=== PATIENT | male | born 1960 | race Caucasian/White ===

== ENCOUNTER → 2016-08-11 | Outpatient (CLI) | payer OTHER | LOC: BMCIMAGING 15:50 | PROVIDERS: ATTEND Internal Medicine | DX: R60.9 Edema, unspecified (principal) ==

== ENCOUNTER → 2016-08-19 | Outpatient (CLI) | payer OTHER | LOC: BMCIMAGING 09:40 | PROVIDERS: ATTEND Internal Medicine | DX: I80.02 Phlebitis and thrombophlebitis of superficial vessels of left lower extremity (principal); R60.9 Edema, unspecified; K40.90 Unilateral inguinal hernia, without obstruction or gangrene, not specified as recurrent ==

== ENCOUNTER → 2017-03-16 | Outpatient (CLI) | payer OTHER | LOC: BMCIMAGING 13:53 | PROVIDERS: ATTEND Podiatrist Foot & Ankle Surgery | DX: M79.671 Pain in right foot (principal) ==

== ENCOUNTER 2018-08-28 10:35 | Emergency (ER) | payer OTHER ==
[2018-08-28 10:40] VITALS: BP 132/92
--- NOTE | 2018-08-28 10:42 | EDPHY ---
H & P Stated Complaint: Laceration to tip of left thumb Source: Patient Exam Limitations: No limitations - Personal History Current Tetanus Diphtheria and Acellular Pertussis (TDAP): Unsure - Medical/Surgical History Hx Asthma: No Hx Chronic Respiratory Disease: No Hx Diabetes: No Hx Cardiac Disease: Yes Hx Renal Disease: No Hx Cirrhosis: No Hx Alcoholism: No Hx HIV/AIDS: No Hx Splenectomy or Spleen Trauma: No Other PMH: - 2017. Cancer - liver. - Social History Smoking Status: Never smoked Time Seen by Provider: 08/28/18 10:41 HPI/ROS: Chief Complaint: Thumb laceration HPI: The patient presents the ED with a laceration to his left thumb that he sustained on sheet metal earlier today. The patient denies any numbness or weakness. He denies additional acute complaints. Patient's tetanus shot is not up today. REVIEW OF SYSTEMS: Neuro: no headache, numbness, weakness Musculoskeletal: as above Skin: As above (Dong Adan) - Physical Exam Exam: General Appearance: Alert, no distress Skin: No lacerations, No abrasion Extremities: 2 cm laceration noted to the left thumb over the distal phalanx. No tendon involvement present, distal to the joint. Neurological: Normal light touch and 2 point discrimination noted throughout the left hand (Dong Adan) Constitutional: Initial Vital Signs Temperature (C) 36.9 C 08/28/18 10:36 Heart Rate 73 08/28/18 10:36 Respiratory Rate 18 08/28/18 10:36 Blood Pressure 132/92 H 08/28/18 10:36 O2 Sat (%) 96 08/28/18 10:36 O2 Delivery Mode Room Air Allergies/Adverse Reactions: No Known Allergies Allergy (Unverified 08/28/18 10:40) Home Medications: Medication Instructions Recorded Aspirin 08/28/18 Plavix 08/28/18 Medical Decision Making Procedures: Laceration Repair Verbal consent obtained by patient. Risks discussed, including but not limited to infection, pain, retained foreign body, need for additional repair, poor cosmetic result, tendon damage, nerve damage, poor wound healing, vascular damage. Alternatives to repair discussed. [place] protocol used to establish correct patient, procedure, equipment, support director, and site. Anesthesia obtained by see Dr. Patino's note. Anesthetized with see Dr. Adan note . Laceration location left volar thumb, length 2 cm, depth 2 mm, Repair type simple. Patient was prepped and draped in usual sterile fashion. Hemostasis achieved with direct pressure. Wound explored through full range of motion and entire depth of wound probed and visualized with gloved finger. No suspicion for nerve damage, tendon damage, underlying fracture, vascular damage, foreign body, or contamination. Area was cleansed with Shur-Clens and irrigated with sterile saline as per protocol. No foreign body or material removed. Repair method 4 0 Prolene simple interrupted sutures. Seven of sutures placed. Well aligned, closely approximated. wound was dressed with bacitracin and Band- Aid. Patient tolerated well with no immediate complications. Wound care: Clean and dry x 24 hours, gently clean with soap and water, cover with topical antibiotic ointment/bandage. Suture/Staple removal: 10 Days (Cristopher Ruiz) ED Course/Re-evaluation: Patient's tetanus shot was updated. The wound was anesthetized and irrigated. It was closed by the physician budget assistant under my supervision. (Dong Adan) - Data Points Medications Given: Discontinued Medications Diphtheria/Tetanus/Acell Pertussis (Infanrix Vaccine Vial) 0.5 ml IM .ONCE ONE Stop: 08/28/18 10:49 Last Admin: 08/28/18 10:50 Dose: Not Given Diphtheria/Tetanus/Acell Pertussis (Boostrix) 0.5 ml IM .ONCE ONE Stop: 08/28/18 10:51 Last Admin: 08/28/18 10:52 Dose: 0.5 ml Departure - Departure Disposition: Home, Routine, Self-Care Clinical Impression: Thumb laceration Condition: Good Instructions: Laceration (ED) Additional Instructions: 1. Return to ED in 12 days for suture removal. Referrals: Calixto Barron MD [Primary Care Provider] - As per Instructions
[2018-08-28] MEDS ORDERED: DIPH,PERTUSS(ACELL),TET PED/PF 0.5 ML VIAL IM ONE (10:48)
[2018-08-28] MEDS ORDERED: TDAP ADULT 0.5 ML INJ (BOOSTRIX) IM ONE (10:50)
== END 2018-08-28 11:39 | disposition home or self-care (01) ==
PROC: 0HQGXZZ Repair Left Hand Skin, External Approach (ICD-10-PCS; principal; 2018-08-28)
DX: S61.012A Laceration without foreign body of left thumb without damage to nail, initial encounter (principal); Z23 Encounter for immunization; W26.8XXA Contact with other sharp object(s), not elsewhere classified, initial encounter; Y99.9 Unspecified external cause status

== ENCOUNTER 2018-11-04 10:24 | Day surgery (SDC) | payer OTHER ==
[2018-11-04] MEDS ORDERED: fentaNYL 100 MCG/2 ML INJ IVP ONE (10:29)
[2018-11-04] MEDS ORDERED: BENZOCAINE UNIT DOSE SPRAY HURRICAINE MM ONE (10:29)
[2018-11-04] MEDS ORDERED: NS 500 ML IV ONE (10:29)
[2018-11-04] MEDS ORDERED: ATROPINE SULFATE 1 MG/10 ML SYR IVP ONE (10:29)
[2018-11-04] MEDS ORDERED: MIDAZOLAM 2 MG/2 ML VIAL IVP ONE (10:29)
[2018-11-04 11:16] LABS: INR 2.07 (0.83-1.16); PROTIME(PATIENT) 22.3 SEC (12.0-15.0)
--- NOTE | 2018-11-04 11:19 | PDANEPAE ---
ANE History of Present Illness 58 yo for cheri/cv ANE Past Medical History - Cardiovascular History Hx Arrhythmias: Yes Hx CHF / Valvular Disease: Yes Hx Palpitations: Yes - Pulmonary History Hx Oxygen in Use at Home: No Hx Sleep Apnea: No - Endocrine History Hx Diabetes: No ANE Review of Systems Review of Systems: - Exercise capacity METS (RN): 4 METS ANE Patient History - Allergies Allergies/Adverse Reactions: No Known Allergies Allergy (Unverified 08/28/18 10:40) - Home Medications Home medications: home medication list seen and reviewed Home Medications: Aspirin 81 mg PO DAILY 08/28/18 [Last Taken 11/04/18 07:00] Coumadin 2.5 mg PO DAILY 11/04/18 [Last Taken 11/03/18 16:00] Fish Oil 1,000 mg Softgel 1,000 mg PO DAILY 11/04/18 [Last Taken 11/04/18 07:00] Vitamin D3 2,000 unit PO DAILY 11/04/18 [Last Taken 11/04/18 07:00] - NPO status NPO Status: no food or drink >8 hours - Anes Hx Anes Hx: no prior problems - Smoking Hx Smoking Status: Never smoked ANE Labs/Vital Signs - Labs Result Diagrams: 11/04/18 10:40 - Vital Signs Height: 6 ft 0.83 in Weight: 81.6 kg ANE Physical Exam - Airway Neck exam: FROM Mallampati Score: Class 2 Mouth exam: normal dental/mouth exam - Pulmonary Pulmonary: no respiratory distress - Cardiovascular Cardiovascular: regular rate and rhythym ANE Anesthesia Plan Anesthesia Plan: GA with mask
[2018-11-04] MEDS ORDERED: PROPOFOL 200 MG/20 ML VIAL ONE (12:16)
--- NOTE | 2018-11-04 13:07 | POSTANESTH ---
Post Anesthetic Evaluation Cardiovascular Status: Normal, Stable Respiratory Status: Normal, Stable Level of Consciousness/Mental Status: Can Participate in Eval Pain Control: Adequate, Prn Tx Ordered Nausea/Vomiting Control: Adequate, Prn Tx Ordered Complications Possibly Related to Anesthesia: None Noted
--- NOTE | 2018-11-04 13:11 | PDTEE1 ---
AGUSTÍN Cardioversion Procedure Procedure: electrical cardioversion, transesophageal echo Indications: atrial fibrillation Consent: signed and in chart Anticoagulation: warfarin Procedural Details: Pads were placed in anterior-posterior position. AGUSTÍN probe was advanced and standard images obtained. There is no evidence of left atrial or left atrial appendage thrombus. Synchronized cardioversion attempt #1: 200J Results: normal sinus rhythm Conclusions: successful cardioversion
--- NOTE | 2018-11-04 13:11 | PDHPUP ---
History & Physical Update H&P update statement: This history and physical update is based on an assessment of the patient which was completed after admission or registration (within 24 hours), but prior to the surgery/procedure. H&P update: H&P reviewed & patient examined, no change in patient's condition since H&P completed
--- NOTE | 2018-11-04 14:49 | CPEKG ---
Test Reason : OPEN Blood Pressure : / mmHG Vent. Rate : 079 BPM Atrial Rate : 319 BPM P-R Int : 132 ms QRS Dur : 089 ms QT Int : 364 ms P-R-T Axes : -39 067 053 degrees QTc Int : 418 ms Atrial flutter with predominant 4:1 AV block Anteroseptal infarct, age indeterminate Confirmed by Ezekiel Espino ([id number]) on 11/04/2018 2:49:06 PM Referred By: GRAYSON SHIELDS Confirmed By:Ezekiel Espino
== END 2018-11-04 14:00 | disposition home or self-care (01) ==
LOC: FCATH 10:24
PROVIDERS: ATTEND Internal Medicine Interventional Cardiology
PROC: 5A2204Z Restoration of Cardiac Rhythm, Single (ICD-10-PCS; principal; 2018-11-04)
PROC: B245ZZ4 Ultrasonography of Left Heart, Transesophageal (ICD-10-PCS; principal; 2018-11-04)
DX: I48.91 Unspecified atrial fibrillation (principal); I25.10 Atherosclerotic heart disease of native coronary artery without angina pectoris; I25.2 Old myocardial infarction; Z95.3 Presence of xenogenic heart valve; Z85.060 Personal history of malignant carcinoid tumor of small intestine
CPT/HCPCS: J0461; J2704

== ENCOUNTER → 2018-11-22 | Outpatient (CLI) | payer OTHER | LOC: FIMAGING 11:45 ==

== ENCOUNTER → 2018-11-25 | Outpatient (CLI) | payer OTHER | LOC: EMCIMAGING 07:57 ==